=== PATIENT | male | born 1960 | race Caucasian/White ===

== ENCOUNTER 2025-07-13 14:32 | Emergency (ER) | payer MEDICARE, MEDICAID | END 2025-07-13 16:06 | disposition home or self-care (01) | LOC: JP.ED 14:32 | DX: S50.12XA Contusion of left forearm, initial encounter (principal); F17.200 Nicotine dependence, unspecified, uncomplicated; W10.8XXA Fall (on) (from) other stairs and steps, initial encounter | CPT/HCPCS: 99283 ==

== ENCOUNTER 2025-08-21 11:29 | Emergency (ER) | payer MEDICARE, MEDICAID | END 2025-08-21 12:57 | disposition home or self-care (01) | LOC: JP.ED 11:29 | DX: S20.211A Contusion of right front wall of thorax, initial encounter (principal); W01.0XXA Fall on same level from slipping, tripping and stumbling without subsequent striking against object, initial encounter; Y93.89 Activity, other specified | CPT/HCPCS: 71046; 71046-26; 99283 ==